=== PATIENT | male | born 1935 | race Caucasian/White ===

== ENCOUNTER 2016-07-14 06:47 | Day surgery (SDC) | payer MEDICARE, BC ==
[2016-07-14] MEDS ORDERED: Bupivacaine 0.5%/EPINEPHrine 1:200,000 50 ML MDV ONE (06:59)
[2016-07-14] MEDS ORDERED: Lidocaine 1% 50 ML MDV ONE (06:59)
[2016-07-14] MEDS ORDERED: Sodium Chloride 0.9% 1,000 ML IV SCH (07:30)
[2016-07-14] MEDS ORDERED: ceFAZolin 2 GM in Premix Bag 1 BAG IV ONE (07:30)
[2016-07-14] MEDS ORDERED: Propofol 200 MG/20 ML SDV ONE ×2 (08:10→08:28)
[2016-07-14] MEDS ORDERED: Bacitracin Oint 1 GM U/D Packet ONE ×2 (08:34→10:18)
[2016-07-14 10:36] VITALS: BP 120/82
--- NOTE | 2016-07-14 13:59 | OR ---
DATE OF PROCEDURE: 07/14/2016 PROCEDURE: 1. Excision of skin lesion, right biceps, 3.5 cm (06215). 2. Complex excision of squamous cell carcinoma, left calf, 10.5 cm (41907). 3. Additional excision of #2 ([id number]). INDICATIONS: 1. Concerning lesion, right biceps. 2. 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 COMPLICATIONS: None. 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 ANESTHESIA: MAC/local. RISK: Risks, benefits, alternatives, and limitations, including, but not limited to infection, bleeding, wound failure due to advanced age and Coumadin use, requirement for skin grafting, and reoperative surgery due to wound complications or margins were explained to the patient, and he wished to proceed. PROCEDURE IN DETAIL: The patient was placed in supine position. The right biceps lesion was identified and was prepped and draped. This was anesthetized with lidocaine and was marked. The aforementioned size was measured and this was excised using a 15 blade. Deeper surface areas including the fat were excised using electrocautery. Prior to the lesions removal, a single stitch was placed proximal and double stitches would be placed posteriorly. This wound was then closed with 2 layers of 3-0 Vicryl and a 3-0 Prolene running suture. Using different equipment gloves, gowns, scalpel sutures etc., the left leg lesion was excised. This was rather a large lesion and was excised using a 15 blade in combination electrocautery. The entire surface approximately 2 cm circumferentially was mobilized in a flap type fashion using electrocautery. The deeper layers were closed with 3-0 Vicryl. When initial sutures were placed to close the superficial aspect, the skin began to tear. This was not surprising due to the thin nature of the skin. Therefore, the skin was mainly brought together and sutured with Vicryl sutures. Horizontal mattress sutures were placed in the middle of the wound to facilitate closure. Combination of 2-0 and 0 Prolene sutures were then placed in an interrupted fashion, bolstered by susana. Dressings were applied. The patient tolerated the procedure well. Darryn Carrion MD /[id number]
== END 2016-07-14 11:00 | disposition home or self-care (01) ==
LOC: JP.SDS 06:47
PROVIDERS: ATTEND Surgery
DX: C44.729 Squamous cell carcinoma of skin of left lower limb, including hip (principal); L90.5 Scar conditions and fibrosis of skin; I10 Essential (primary) hypertension
CPT/HCPCS: 11404; 13121; 13122; 88305; J0690; J2704; J7040

== ENCOUNTER 2016-10-11 17:04 | Emergency (ER) | payer MEDICARE, BC ==
[2016-10-11] MEDS ORDERED: HYDROmorphone 0.5 MG/0.5 ML Syringe IVPUSH ONE (17:46)
[2016-10-11] MEDS ORDERED: Clopidogrel 75 MG Tab PO ONE (18:28)
[2016-10-11] MEDS ORDERED: Aspirin 81 MG Tab.Chew PO ONE (18:28)
--- NOTE | 2016-10-11 18:37 | EDM.PDOC ---
ED HPI GENERAL MEDICAL PROBLEM - General Chief Complaint: Chest Pain Stated Complaint: CHEST PAINS Time Seen by Provider: 10/11/16 17:15 Source of Information: Reports: Patient, Family History Limitations: Reports: No Limitations - History of Present Illness INITIAL COMMENTS - FREE TEXT/NARRATIVE: 81-year-old male with known cardiomyopathy and congestive heart failure developed chest pain at 4 PM, 1-1/2 hour prior to coming into the emergency room. It was accompanied by shortness of breath and mild nausea. He is anticoagulated with Coumadin, his INR was "a little high" last week. No abdominal pain. The pain started while he was at rest. Onset: Sudden Quality: Reports: Ache, Pressure Severity: Moderate Associated Symptoms: Reports: Shortness of Breath. Denies: Fever/Chills Chest Pain Score (Numeric/FACES): 8 - Related Data Allergies Allergy/AdvReac Type Severity Reaction Status Date / Time No Known Allergies Allergy Verified 07/14/16 07:08 Home Meds: Home Meds Aspirin [Adult Low Dose Aspirin EC] 162 mg PO DAILY 06/22/14 [History] Warfarin [Coumadin] 2.5 mg PO ASDIRECTED 06/22/14 [History] Lisinopril [Prinivil] 20 mg PO DAILY 11/08/15 [History] Warfarin [Coumadin] 1.25 mg PO ASDIRECTED 11/08/15 [History] Carvedilol [Coreg] 25 mg PO BID 07/12/16 [History] Furosemide [Lasix] 80 mg PO QAM 07/12/16 [History] Magnesium Oxide [Magnesium] 400 mg PO BID 07/12/16 [History] Furosemide [Lasix] 40 mg PO ACDINNER 10/11/16 [History] atorvaSTATin [Lipitor] 40 mg PO BEDTIME 10/11/16 [History] Past Medical History Cardiovascular History: Reports: Afib, Automatic Implantable Cardioverter Defibrillators, Cardiomyopathy, Heart Failure, Hypertension, Other (See Below) Respiratory History: Reports: Sleep Apnea Genitourinary History: Reports: Prostate Disorder Musculoskeletal History: Reports: Arthritis Neurological History: Reports: Other (See Below) Other Neuro History: wilma september 03 2016 Hematologic History: Reports: Anticoagulation Therapy Oncologic (Cancer) History: Reports: Squamous Cell Carcinoma Dermatologic History: Reports: Melanoma, Other (See Below) Other Dermatologic History: THIN SKIN - Infectious Disease History Infectious Disease History: Reports: Chicken Pox, Measles, Mumps, Pertussis ( Whooping Cough), Shingles - Past Surgical History HEENT Surgical History: Reports: Cataract Surgery GI Surgical History: Reports: Colonoscopy, EGD, Hernia, Abdominal Male Surgical History: Reports: TURP-Transurethral Resection of Prostate Dermatological Surgical History: Reports: Skin Biopsy Social & Family History - Family History Family Medical History: Noncontributory - Tobacco Use Smoking Status *Q: Never Smoker Second Hand Smoke Exposure: No - Caffeine Use Caffeine Use: Reports: Coffee - Alcohol Use Days Per Week of Alcohol Use: 1 Number of Drinks Per Day: 2 Total Drinks Per Week: 2 - Recreational Drug Use Recreational Drug Use: No ED ROS GENERAL - Review of Systems Review Of Systems: See Below Constitutional: Denies: Fever, Chills, Malaise HEENT: Reports: Other (Some pain radiating into the throat) Respiratory: Reports: Shortness of Breath Cardiovascular: Reports: Chest Pain. Denies: Lightheadedness, Palpitations GI/Abdominal: Reports: Nausea. Denies: Abdominal Pain, Vomiting Skin: Reports: Diaphoresis, Other (A skin cancer was removed from the left lower extremity) Neurological: Reports: No Symptoms (No new symptoms, patient has had a stroke in the fairly recent past) Psychiatric: Reports: No Symptoms ED EXAM, GENERAL - Physical Exam Exam: See Below Exam Limited By: No Limitations General Appearance: Alert, No Apparent Distress Eye Exam: Bilateral Eye: EOMI Respiratory/Chest: No Respiratory Distress, Lungs Clear Cardiovascular: Irregularly Irregular Extremities: Other Neurological: Alert, Oriented Psychiatric: Normal Affect, Normal Mood Skin Exam: Other (Patient has a healing lesion on the lower left leg) Course - Vital Signs Last Recorded V/S: Last Vital Signs Temp 96 F 10/11/16 17:23 Pulse 85 10/11/16 18:28 Resp 18 10/11/16 18:28 BP 85/71 L 10/11/16 18:28 Pulse Ox 94 L 10/11/16 18:28 - Orders/Labs/Meds Orders: Active Orders 24 hr Category Date Time Status EKG Documentation Completion [RC] ASDIRECTED Care 10/11/16 17:49 Active EKG 12 Lead [EK] Routine Ther 10/11/16 17:48 Ordered Labs: Laboratory Tests 10/11/16 10/11/1610/11/17 Range/Units 17:48 17:48 18:30 WBC 12.6 H (4.5-11.0) K/uL RBC 4.81 (4.30-5.90) M/uL Hgb 14.8 (12.0-15.0) g/dL Hct 44.9 (40.0-54.0) % MCV 93 (80-98) fL MCH 31 (27-31) pg MCHC 33 (32-36) % Plt Count 164 (150-400) K/uL Neut % (Auto) 43 (36-66) % Lymph % (Auto) 50 H (24-44) % [place] % (Auto) 7 H (2-6) % Eos % (Auto) 0 L (2-4) % Baso % (Auto) 1 (0-1) % PT 14.4 H (9.5-12.0) sec INR 1.33 H (0.80-1.20) Sodium (140-148) mmol/L Potassium (3.6-5.2) mmol/L Chloride (100-108) mmol/L Carbon Dioxide (21-32) mmol/L Anion Gap (5.0-14.0) mmol/L BUN (7-18) mg/dL Creatinine (0.8-1.3) mg/dL Est Cr Clr Drug Dosing Estimated GFR (MDRD) (>60) Glucose (74-106) mg/dL Calcium (8.5-10.1) mg/dL Total Bilirubin (0.2-1.0) mg/dL AST (15-37) U/L ALT (12-78) U/L Alkaline Phosphatase (46-116) U/L Troponin I 0.087 H* (0.000-0.056) ng/mL Total Protein (6.4-8.2) g/dL Albumin (3.4-5.0) g/dL Globulin (2.3-3.5) g/dL Albumin/Globulin Ratio (1.2-2.2) 10/11/16 Range/Units 18:38 WBC (4.5-11.0) K/uL RBC (4.30-5.90) M/uL Hgb (12.0-15.0) g/dL Hct (40.0-54.0) % MCV (80-98) fL MCH (27-31) pg MCHC (32-36) % Plt Count (150-400) K/uL Neut % (Auto) (36-66) % Lymph % (Auto) (24-44) % [place] % (Auto) (2-6) % Eos % (Auto) (2-4) % Baso % (Auto) (0-1) % PT (9.5-12.0) sec INR (0.80-1.20) Sodium 134 L (140-148) mmol/L Potassium 3.9 (3.6-5.2) mmol/L Chloride 99 L (100-108) mmol/L Carbon Dioxide 29 (21-32) mmol/L Anion Gap 9.9 (5.0-14.0) mmol/L BUN 16 (7-18) mg/dL Creatinine 1.1 (0.8-1.3) mg/dL Est Cr Clr Drug Dosing TNP Estimated GFR (MDRD) > 60 (>60) Glucose 197 H (74-106) mg/dL Calcium 8.3 L (8.5-10.1) mg/dL Total Bilirubin 1.0 (0.2-1.0) mg/dL AST 34 D (15-37) U/L ALT 50 D (12-78) U/L Alkaline Phosphatase 66 D (46-116) U/L Troponin I (0.000-0.056) ng/mL Total Protein 6.5 (6.4-8.2) g/dL Albumin 3.5 (3.4-5.0) g/dL Globulin 3.0 (2.3-3.5) g/dL Albumin/Globulin Ratio 1.2 (1.2-2.2) Meds: Medications Discontinued Medications Generic Name Dose Route Start Last Admin Trade Name Freq PRN Reason Stop Dose Admin Aspirin 324 mg 10/11/16 18:28 10/11/16 18:35 Aspirin PO 10/11/16 18:29 324 mg ONETIME ONE Administration Clopidogrel Bisulfate 600 mg 10/11/16 18:28 10/11/16 18:33 Plavix PO 10/11/16 18:29 600 mg ONETIME ONE Administration Heparin Sodium (Porcine) 4,000 units 10/11/16 18:48 10/11/16 18:50 Heparin Sodium IVPUSH 10/11/16 18:49 4,000 units ONETIME ONE Administration Heparin Sodium (Porcine) Confirm 10/11/16 18:49 10/11/16 18:52 Heparin Sodium Administered 10/11/16 18:50 Not Given Dose 5,000 units .ROUTE .STK-MED ONE Hydromorphone HCl 0.5 mg 10/11/16 17:46 10/11/16 17:55 Dilaudid IVPUSH 10/11/16 17:47 0.5 mg ONETIME ONE Administration - Re-Assessments/Exams Free Text/Narrative Re-Assessment/Exam: 10/11/16 18:35 An IV was started, EKG done which showed significant changes from an EKG done in June of this year. The patient was hypotensive we were unable to use nitroglycerin but he was given 0.5 mg of Dilaudid IV which gave him some good pain relief. Troponin returned slightly elevated at 0.08, phone consultation with Dr. Hartman at [facility] was obtained and he accepted the patient for urgent transfer. Patient was given full dose aspirin as well as 600 mg of Plavix. Heparin was not initiated because of his anticoagulation with warfarin. INR returned at 1.33 so 4000 Units of Heparin was given Departure - Departure Time of Disposition: 18:53 Disposition: DC/Tfer to Acute Hospital 02 Condition: Fair Clinical Impression: Acute myocardial infarction Qualifiers: Myocardial infarction ST status: ST elevation myocardial infarction Involved coronary artery: unspecified coronary artery Qualified Code(s): I21.3 - ST elevation (STEMI) myocardial infarction of unspecified site A-fib Qualifiers: Atrial fibrillation type: chronic Qualified Code(s): I48.2 - Chronic atrial fibrillation - Discharge Information Referrals: Navjot Childers MD [Primary Care Provider] - Forms: ED Department Discharge Care Plan Goals: Patient was urgently transferred to [facility] for cardiac evaluation, likely angiogram. - My Orders Last 24 Hours: My Active Orders 10/11/16 17:48 EKG 12 Lead [EK] Routine 10/11/16 17:49 EKG Documentation Completion [RC] ASDIRECTED - Assessment/Plan Last 24 Hours: My Active Orders 10/11/16 17:48 EKG 12 Lead [EK] Routine 10/11/16 17:49 EKG Documentation Completion [RC] ASDIRECTED
[2016-10-11 18:41] VITALS: BP 85/71
[2016-10-11] MEDS ORDERED: Heparin Sodium 5,000 Units/ML Vial IVPUSH ONE (18:48)
[2016-10-11] MEDS ORDERED: Heparin Sodium 5,000 Units/ML Vial ONE (18:49)
--- NOTE | 2016-10-12 10:15 | CR ---
Chest 1V Frontal INDICATION: chest pain, dyspnea FINDINGS: Comparison 05/22/2016. Right-sided single lead AICD in place. Stable cardiac enlargement allo wing for portable AP technique. No focal infiltrate or pleural effusion. Chest otherwise negative.
== END 2016-10-11 18:55 ==
LOC: JP.ED 17:04
DX: I21.3 ST elevation (STEMI) myocardial infarction of unspecified site (principal); I48.2 Chronic atrial fibrillation; I11.0 Hypertensive heart disease with heart failure; I50.9 Heart failure, unspecified; M19.90 Unspecified osteoarthritis, unspecified site; I42.9 Cardiomyopathy, unspecified; Z85.828 Personal history of other malignant neoplasm of skin; Z98.49 Cataract extraction status, unspecified eye; Z98.890 Other specified postprocedural states; Z79.01 Long term (current) use of anticoagulants; Z79.82 Long term (current) use of aspirin; Z79.899 Other long term (current) drug therapy; Z95.810 Presence of automatic (implantable) cardiac defibrillator
CPT/HCPCS: 36415; 71010; 80053; 84484; 85025; 85610; 93005; 96374; 96375; 99285; A9270; J1170; J1644; 93010